=== PATIENT | female | born 1965 | race Caucasian/White ===

== ENCOUNTER 2018-06-10 07:40 | Emergency (ER) | payer MEDICARE, MEDICAID ==
[~2018-06-10] VITALS: Ht 162.6 cm; Wt 68.0 kg
[~2018-06-10 07:40] MED LIST: BUTA-251; IBUP-2030; MECL-109
[2018-06-10] MEDS ORDERED: LORAZEPAM 0.5MG TABLET PO ONE (08:00)
[2018-06-10] MEDS ORDERED: IBUPROFEN 600MG TABLET PO ONE (08:00)
[2018-06-10 08:14] VITALS: BP 133/87
== END 2018-06-10 08:15 | disposition home or self-care (01) ==
LOC: ER 08:00
DX: M79.18 Myalgia, other site (principal); Z79.899 Other long term (current) drug therapy
CPT/HCPCS: 99283

== ENCOUNTER 2018-06-11 23:13 | Emergency (ER) | payer MEDICARE, MEDICAID ==
[~2018-06-11] VITALS: Ht 167.6 cm; Wt 77.0 kg
[2018-06-12] MEDS ORDERED: LORAZEPAM 2MG/ML CPJ IV ONE (00:15)
[2018-06-12 00:19] LABS: BASOPHILS % 1.1 % (0.0-2.0); EOSINOPHILS % 2.2 % (0.0-5.0); HEMATOCRIT. 40.5 % (36.0-48.0); HEMOGLOBIN. 13.5 g/dL (12.0-16.0); LYMPHOCYTES % 40.9 % (20.0-50.0); MEAN CORPUSCULAR VOLUME 81.1 fL (81.0-99.0); MEAN PLATELET VOLUME 7.1 fl (7.4-10.4); MONOCYTES % 6.5 % (2.0-8.0); NEUTROPHILS % 49.3 % (40.0-76.0); PLATELET 320 x1000/uL (130-400); RED BLOOD CELL COUNT 4.99 mill/uL (4.2-5.4); RED CELL DISTRIBUTION WIDTH 15.1 % (11.6-14.6)
[2018-06-12 00:26] LABS: CHLORIDE 111 mEq/L (98-107)
[2018-06-12 00:30] LABS: ETHANOL BLOOD 120 mg/dL
[2018-06-12] MEDS ORDERED: IBUPROFEN 600MG TABLET PO ONE ×2 (05:30→11:15)
[2018-06-12] MEDS ORDERED: ACETAMINOPHEN 500MG TABLET PO ONE (05:30)
[2018-06-12 07:43] LABS: CLARITY URINE CLEAR (CLEAR); COLOR URINE YELLOW (YELLOW); KETONES URINE NEGATIVE (NEGATIVE); LEUKOCYTE ESTERASE URINE NEGATIVE (NEGATIVE); NITRITE URINE NEGATIVE (NEGATIVE); OCCULT BLOOD URINE NEGATIVE (NEGATIVE); PH URINE 5.5 (4.5-8.0); PROTEIN URINE NEGATIVE (NEGATIVE); SPECIFIC GRAVITY URINE 1.011 (1.005-1.030); UROBILINOGEN URINE 0.2 E.U./dL (0.2-1.0)
[2018-06-12 07:59] LABS: *AMPHETAMINES SCREEN URINE NEGATIVE (NEGATIVE); *BARBITURATES SCREEN URINE NEGATIVE (NEGATIVE); *BENZODIAZEPINES SCREEN URINE PRESUMTIVE POSITIVE (NEGATIVE)
[2018-06-12 08:01] LABS: *COCAINE SCREEN URINE NEGATIVE (NEGATIVE); METHADONE URINE SCREEN NEGATIVE (NEGATIVE); OPIATES URINE SCREEN PRESUMTIVE POSITIVE (NEGATIVE)
[2018-06-12 08:02] LABS: CANNABINOID URINE SCREEN PRESUMTIVE POSITIVE (NEGATIVE); PHENCYCLIDINE URINE SCREEN NEGATIVE (NEGATIVE)
[2018-06-12 13:00] VITALS: BP 121/63
== END 2018-06-12 13:25 | disposition home or self-care (01) ==
LOC: ER 23:13
DX: R45.851 Suicidal ideations (principal); F31.9 Bipolar disorder, unspecified; Z79.899 Other long term (current) drug therapy
CPT/HCPCS: 36415; 80053; 80305; 80320; 81003; 85025; 96374; 99284; J2060; G0480

== ENCOUNTER 2019-01-06 16:31 | Emergency (ER) | payer MEDICARE, MEDICAID | END 2019-01-06 17:48 | disposition left against medical advice (07) | LOC: ER 16:44 | DX: Z53.21 Procedure and treatment not carried out due to patient leaving prior to being seen by health care provider (principal) ==

== ENCOUNTER 2019-10-30 23:43 | Emergency (ER) | payer MEDICARE, MEDICAID ==
[~2019-10-30] VITALS: Ht 162.6 cm; Wt 74.0 kg
[~2019-10-30 23:43] MED LIST changes: -MECL-109; +MECL-159
[2019-10-31] MEDS ORDERED: METHYLPREDNISOLONE SOD SUCC 125 MG/2 ML VIAL IM STA (00:18)
[2019-10-31] MEDS ORDERED: ALBUTEROL 6.7GM HFA INHALER ORI ONE (00:30)
[2019-10-31 00:44] VITALS: BP 151/72
== END 2019-10-31 01:26 | disposition left against medical advice (07) ==
LOC: ER 23:43
DX: J45.901 Unspecified asthma with (acute) exacerbation (principal); Z98.51 Tubal ligation status; Z98.890 Other specified postprocedural states
CPT/HCPCS: 96372; 99283; J2930

== ENCOUNTER 2023-01-27 15:17 | Emergency (ER) | payer MEDICARE, MEDICAID ==
[~2023-01-27] VITALS: Ht 167.6 cm; Wt 70.0 kg
[~2023-01-27 15:17] MED LIST changes: +ALBU6.7H3 IH; -BUTA-251; +DOCU-150 PO; +DULO30CA52 PO; +FLUT16SP15 BOTHNSTRLS; +HYDR-4009 PO; -IBUP-2030; +LORA10TA7 PO; -MECL-159; +OMEP20CA14 PO; +PREG50CA PO
[2023-01-27 15:24] VITALS: BP 106/64; PULSE 99; RESP 18; TEMP 98.3; O2SAT 99
[2023-01-27] MEDS ORDERED: MIRT-144 MT (15:27)
== END 2023-01-27 15:30 | disposition home or self-care (01) ==
LOC: ER 15:17
DX: R51.9 Headache, unspecified (principal); Z76.0 Encounter for issue of repeat prescription; Z98.51 Tubal ligation status; Z79.899 Other long term (current) drug therapy
CPT/HCPCS: 99283

== ENCOUNTER 2024-08-28 09:40 | Emergency (ER) | payer MEDICARE, MEDICAID ==
[~2024-08-28] VITALS: Ht 165.1 cm; Wt 70.0 kg
[~2024-08-28 09:40] MED LIST changes: +CEL200 MT; +CYCL5TAB3 MT; -DOCU-150 PO; +DOCU-422 PO; +GLYC2TAB21 PO; +LEVO750T68 MT; +MIRT-144 MT; +PANT20TA17 MT; +TIOT18CA3 IH
[2024-08-28 09:52] VITALS: O2SAT 100
[2024-08-28 11:29] LABS: BASOPHILS % 0.4 % (0.0-2.0); EOSINOPHILS % 1.6 % (0.0-5.0); HEMATOCRIT. 38.8 % (36.0-48.0); HEMOGLOBIN. 12.9 g/dL (12.0-16.0); LYMPHOCYTES % 28.2 % (20.0-50.0); MEAN PLATELET VOLUME 6.4 fl (7.4-10.4); MONOCYTES % 9.1 % (2.0-8.0); NEUTROPHILS % 60.7 % (40.0-76.0); PLATELET 431 x1000/uL (130-400); RED BLOOD CELL COUNT 4.93 mill/uL (4.2-5.4); RED CELL DISTRIBUTION WIDTH 18.5 % (11.6-14.6)
[2024-08-28 11:42] LABS: CREATININE 0.8 mg/dL (0.6-1.0)
[2024-08-28 11:43] LABS: ETHANOL BLOOD < 10 mg/dL (<10); UREA NITROGEN BLOOD 25 mg/dL (9-23)
[2024-08-28] MEDS: DULOXETINE HCL 60MG DR CAPSULE PO NR (12:10)
[2024-08-28 12:47] LABS: *AMPHETAMINES SCREEN URINE NEGATIVE (NEGATIVE); *BARBITURATES SCREEN URINE NEGATIVE (NEGATIVE); *BENZODIAZEPINES SCREEN URINE NEGATIVE (NEGATIVE); *COCAINE SCREEN URINE NEGATIVE (NEGATIVE); CANNABINOID URINE SCREEN PRESUMPTIVE POSITIVE (NEGATIVE); ECSTASY MDMA SCREEN URINE NEGATIVE (NEGATIVE); METHADONE URINE SCREEN NEGATIVE (NEGATIVE); OPIATES URINE SCREEN PRESUMPTIVE POSITIVE (NEGATIVE); PHENCYCLIDINE URINE SCREEN NEGATIVE (NEGATIVE)
[2024-08-28 20:00] VITALS: BP 116/56; PULSE 97; RESP 18; TEMP 36.8; O2SAT 98
== END 2024-08-28 20:33 | disposition home or self-care (01) ==
LOC: ER 09:40
DX: R45.851 Suicidal ideations (principal); F15.90 Other stimulant use, unspecified, uncomplicated; F10.90 Alcohol use, unspecified, uncomplicated; F32.A Depression, unspecified; F17.200 Nicotine dependence, unspecified, uncomplicated; M19.90 Unspecified osteoarthritis, unspecified site; M79.7 Fibromyalgia; Z98.51 Tubal ligation status; Z79.899 Other long term (current) drug therapy; Z79.1 Long term (current) use of non-steroidal anti-inflammatories (NSAID); Z59.71 Insufficient health insurance coverage; Z20.822 Contact with and (suspected) exposure to COVID-19; Y90.9 Presence of alcohol in blood, level not specified
CPT/HCPCS: 36415; 80048; 80305; 80307; 80320; 80329; 85025; 87426; 99283; 99284; G0480